=== PATIENT | female | born 1995 | race Two or more races ===

== ENCOUNTER 2021-10-29 12:00 | Outpatient (CLI) | payer OTHER, SELFPAY | END 2021-10-29 12:01 | disposition home or self-care (01) | LOC: SLEEP 10-30 16:31 | PROVIDERS: Family Provider Family Medicine; PCP Family Medicine; Visit Provider Pediatrics | DX: R06.83 Snoring (principal); R53.83 Other fatigue; G47.19 Other hypersomnia | CPT/HCPCS: G0399 ==